=== PATIENT | female | born 1990 | race Caucasian/White ===

== ENCOUNTER 2017-02-20 15:57 | Emergency (ER) | payer OTHER ==
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
[2017-02-20 19:57] VITALS: BP 107/71; PULSE 73; RESP 18; TEMP 98.2; O2SAT 99
== END 2017-02-20 19:57 | disposition home or self-care (01) ==
DX: S16.1XXA Strain of muscle, fascia and tendon at neck level, initial encounter (principal); S09.90XA Unspecified injury of head, initial encounter; V89.2XXA Person injured in unspecified motor-vehicle accident, traffic, initial encounter; Y92.410 Unspecified street and highway as the place of occurrence of the external cause

== ENCOUNTER → 2017-10-29 | Outpatient (CLI) | payer OTHER | LOC: FIMAGING 15:38 | PROVIDERS: ATTEND Physician Assistant | DX: R51 Headache (principal); R42 Dizziness and giddiness; R53.83 Other fatigue ==

== ENCOUNTER 2018-06-15 15:50 | Emergency (ER) | payer OTHER ==
--- NOTE | 2018-06-15 16:29 | EDPHY ---
H & P Stated Complaint: c/o panic attack then vomiting, then syncope Time Seen by Provider: 06/15/18 16:23 HPI/ROS: HPI: This is a 28-year-old female who presents with Chief Complaint: c/o panic attack then vomiting, then syncope Location: Head Quality: Injury Duration: 45 min prior to arrival Signs and Symptoms: no shortness of breath at rest, no shortness of breath on exertion, no cough, no chest pain, no palpitations, no lower extremity edema, no wheezing, no orthopnea, no paroxysmal nocturnal dyspnea, no fever, no injury/ trauma, no hemoptysis, no carpal pedal spasms Timing: Acute Severity: Mild Context: Patient reports that she is under extreme stress for grad school as well as family stressors and approximately 1 and 0.5 hr prior to arrival started to have increased anxiety and panic attack. She reports that she was breathing rapidly, crying excessively and hunched over resting her elbows on her knees trying to catch her breath. She then moved to the bathroom and vomited several times. She remembers looking at the toilet and then waking up next to the bath tub. She had had positive loss consciousness. She reports that she feels nauseous and dizzy and has cervical midline pain at the base of her skull. She also complains of pain at the left temporal, parietal area. No active bleeding. She took an Uber here to the emergency room for further evaluation. Patient reports that this is typical for her to have increased anxiety and panic attacks since the summer. She is currently taking psychiatric medications. Patient has an appointment tomorrow with her therapist , Ms. Vigil. Modifying Factors: See above Comment: ROS: A comprehensive 10 system review of systems is otherwise negative aside from elements mentioned in the history of present illness. MEDICAL/SURGICAL/SOCIAL HISTORY: Medical history: Anxiety. Does not take any regular medications. Surgical history: Denies Social history: Member of [employer]. Never smoked. CONSTITUTIONAL: Slightly tearful, polite and cooperative, adult white female, awake and alert, no obvious distress HEENT: Atraumatic and normocephalic, PERRL, EOMI. no globe entrapment, no raccoon eyes. no [place] signs.Tympanic membranes clear. No tympanic membrane rupture. Nares patent; no septal hematoma. Oropharynx clear, no exudate and moist pink mucosa. No malocclusion. no dental trauma. Airway patent. No lymphadenopathy. NECK: supple, moderate C1 through C3 midline tenderness, flexion 45 degrees, extension 45 degrees, right and left lateral flexion 45 degrees. Cardiovascular: Normal S1/S2, regular rate, regular rhythm, without murmur rub or gallop. PULMONARY/CHEST: Symmetrical and nontender. Clear to auscultation bilaterally. Good air movement. No accessory muscle usage. ABDOMEN: Soft, nondistended, nontender, no rebound, no guarding, no peritoneal signs, no masses or organomegaly. No CVAT. EXTREMITIES: 2/2 pulses, strength 5/5, no deformities, no clubbing, no cyanosis or edema. NEUROLOGICAL: no focal neuro deficits. GCS 15. Cranial nerves 2-12 grossly intact. SKIN: Warm and dry, no erythema. no rash. Good capillary refill. PSYCH: Good eye contact, no flight of ideas, organized thought process, good insight and judgment, no auditory hallucinations, no visual hallucinations, no suicidal ideation with a plan, no homicidal ideation, no paranoia Source: Patient Exam Limitations: No limitations - Personal History LMP (Females 10-55): 1-7 Days Ago - Medical/Surgical History Hx Asthma: No Hx Chronic Respiratory Disease: No Hx Diabetes: No Hx Cardiac Disease: No Hx Renal Disease: No Hx Cirrhosis: No Hx Alcoholism: No Hx HIV/AIDS: No Hx Splenectomy or Spleen Trauma: No Other PMH: anxiety - Social History Smoking Status: Never smoked Constitutional: Initial Vital Signs Temperature (C) 36.6 C 06/15/18 15:57 Heart Rate 87 06/15/18 15:57 Respiratory Rate 18 06/15/18 15:57 Blood Pressure 124/100 H 06/15/18 15:57 O2 Sat (%) 100 06/15/18 15:57 O2 Delivery Mode Room Air Allergies/Adverse Reactions: pineapple Allergy (Mild, Verified 06/15/18 16:00) Hives Home Medications: Medication Instructions Recorded NK [No Known Home Meds] 02/20/17 Medical Decision Making - Diagnostics EKG Interpretation: 12 lead EKG: Indication: Syncope Rhythm: Normal sinus rhythm, rate of 67 beats per minute [place]: Normal Intervals: Normal QRS: Normal ST segments: Normal INTERPRETATION: No acute ischemic changes The 12 lead EKG was interpreted by myself and with attending. Imaging Results: Imaging Impressions Cervical Spine CT 06/15/18 16:29 Impression: 1. No definite fracture. 2. If there is persistent pain or neurological deficit, recommend MR cervical spine and consider flexion and extension views, if clinically indicated. Findings and recommendations discussed with Emergency Department physician, Neeta Ryan at 1716 hour, 06/15/2018. Final report concurs with initial preliminary interpretation. Head CT 06/15/18 16:29 Impression: 1. Normal CT brain without contrast. 2. No skull fracture. Findings and recommendations discussed with Emergency Department physician, Neeta Ryan at 1715 hour, 06/15/2018. Final report concurs with initial preliminary interpretation. ED Course/Re-evaluation: Vital signs reviewed and stable upon arrival. No respiratory distress, hypoxia. Panic attack resolved upon arrival to the emergency room. EKG my read shows normal sinus rhythm rate of 67 beats per minute, no acute ischemic changes, no arrhythmias. Based on nexus protocol of LOC/nausea and vomiting, head CT scan ordered Based on nexus protocol of midline tenderness, cervical CT scan ordered 1715: Called by Radiology, Dr. Martínez, head CT scan shows no acute intracranial process. Cervical CT scan shows no fracture, dislocation. Does show straightening of the lordosis consistent with muscle spasm. This is most likely related to a vasovagal reaction secondary to vomiting and panic attacks. Patient is drinking fluids without any difficulty. Complete resolution of symptoms. Patient has close follow-up with counselor tomorrow Does not meet [address] or [facility] criteria This patient was seen under the supervision of my secondary supervising physician. I evaluated care for this patient independently. Discussed this patient with Dr. Curiel who did not see the patient. Differential Diagnosis: Syncope including but not limited to vasovagal syncope, arrhythmia, dehydration , and blood loss. Departure - Departure Disposition: Home, Routine, Self-Care Clinical Impression: Panic attack as reaction to stress Contusion of scalp Qualifiers: Encounter type: initial encounter Qualified Code(s): S00.03XA - Contusion of scalp, initial encounter Cervical muscle strain Qualifiers: Encounter type: initial encounter Qualified Code(s): S16.1XXA - Strain of muscle, fascia and tendon at neck level, initial encounter Condition: Good Instructions: Cervical Strain (ED), Scalp Contusion in Adults (ED), Anxiety (ED ), Panic Attack (ED) Additional Instructions: Head CT scan is negative for bleed, fracture. Cervical CT scan is negative for fracture. It does show muscle spasm in your neck muscles. Take Tylenol 650 mg every 4 hours and/or Ibuprofen 600 mg every 8 hours with food as needed for pain. Apply ice for 30 minutes at a time; 2-3 times per day for the next 1-2 days. Keep follow-up appointment with counselor tomorrow. Call 911 if you have thoughts of hurting or killing yourself or anyone else, or have any new or worsening symptoms that concern you. Referrals: Yoli Lofton PA [Primary Care Provider] - As per Instructions
[2018-06-15 17:30] VITALS: BP 124/88
--- NOTE | 2018-06-15 19:55 | CPEKG ---
Test Reason : OPEN Blood Pressure : / mmHG Vent. Rate : 067 BPM Atrial Rate : 067 BPM P-R Int : 134 ms QRS Dur : 088 ms QT Int : 408 ms P-R-T Axes : 034 071 054 degrees QTc Int : 431 ms Sinus rhythm Confirmed by Ximena Curiel ([id number]) on 06/15/2018 7:55:12 PM Referred By: Confirmed By:Ximena Curiel
== END 2018-06-15 17:28 | disposition home or self-care (01) ==
LOC: EEVIPCON 15:50
DX: F43.0 Acute stress reaction (principal); R55 Syncope and collapse; S00.03XA Contusion of scalp, initial encounter; S16.1XXA Strain of muscle, fascia and tendon at neck level, initial encounter; W19.XXXA Unspecified fall, initial encounter; Y92.012 Bathroom of single-family (private) house as the place of occurrence of the external cause; F41.9 Anxiety disorder, unspecified

== ENCOUNTER 2018-08-05 00:28 | Emergency (ER) | payer OTHER ==
[2018-08-05] MEDS ORDERED: NS 1,000 ML IV ONE ×2 (00:38→00:40)
[2018-08-05] MEDS ORDERED: ONDANSETRON 4 MG/2 ML VIAL IVP ONE (00:38)
[2018-08-05] MEDS ORDERED: FAMOTIDINE 20 MG/2 ML SDV IVP ONE (00:39)
--- NOTE | 2018-08-05 00:39 | EDPHY ---
H & P Stated Complaint: "VOMITING BLOOD" Time Seen by Provider: 08/05/18 00:38 HPI/ROS: HPI CHIEF COMPLAINT: Nausea vomiting. HISTORY OF PRESENT ILLNESS: 28-year-old female otherwise healthy no significant medical history does not take any daily medications, presents emergency room with nausea vomiting. Patient states she flew back from [employer] to [place]. She went out this evening with her significant other and had 5 beers she did take it mg Ativan on the flight earlier tonight. She did not have anything to eat today. She arrives to the emergency room with vomiting. She states she vomited multiple times she thought initially there was dark chunks of blood in it. However she continued to vomit here in the emergency without any blood. Denies any significant abdominal pain. Does complain of nausea. Denies drug use. Denies chest pain or shortness of breath. Denies diarrhea. No recent illness. She does report that she had 5 beers 1 mg Ativan without eating anything tonight. Past Medical History: Denies significant medical history Past Surgical History: Lymph node removal Social History: Alcohol this evening. Family History: Noncontributory ROS REVIEW OF SYSTEMS: 10 Systems were reviewed and negative with the exception of the elements mentioned in the history of present illness. Exam Constitutional appears well nontoxic, triage nursing summary reviewed, vital signs reviewed, awake/alert. Actively vomiting. Stable vital signs Eyes normal conjunctivae and sclera, EOMI, PERRLA. HENT normal inspection, atraumatic, moist mucus membranes, no epistaxis, neck supple/ no meningismus, no raccoon eyes. Respiratory clear to auscultation bilaterally, normal breath sounds, no respiratory distress, no wheezing. Cardiovascular rate normal, regular rhythm, no murmur, no edema, distal pulses normal. Gastrointestinal soft, non-tender, no rebound, no guarding, normal bowel sounds, no distension, no pulsatile mass. Genitourinary no CVA tenderness. Musculoskeletal no midline vertebral tenderness, full range of motion, no calf swelling, no tenderness of extremities, no meningismus, good pulses, neurovascularly intact. Skin pink, warm, & dry, no rash, skin atraumatic. Neurologic awake, alert and oriented x 3, AAOx3, moves all 4 extremities equally, motor intact, sensory intact, CN II-XII intact, normal cerebellar, normal vision, normal speech. Psychiatric normal mood/affect. Heme/Lymph/Immune no lymphadenopathy. Differential Diagnosis: Differential diagnosis includes but is not limited to and in no particular order: Bowel obstruction, appendicitis, gallbladder disease, diverticulitis, colitis, enteritis, perforated viscus, gastritis, GERD , esophagitis, urinary tract infection, pyelonephritis, kidney stones Medical Decision Making: Plan for this patient IV establishment IV fluid bolus IV Zofran for nausea IV Pepcid for GI upset, basic blood work, alcohol level, drug screen, electrolytes, liver enzymes, lipase, test and re- evaluate. Re-evaluation: Serum alcohol level 180. 1:45 a.m.. 0509am; patient re-evaluated and continues to do very well. Denies any abdominal pain cup is not vomiting would like to go home. She received 2 L of fluid here IV Pepcid IV Zofran. Patient denies any chest pain or shortness of breath, Vital signs are stable. She p.o. Challenge well without vomiting Her serum alcohol level was elevated 180 I do believe her vomiting most likely was due to gastritis. Recommend bland diet over the next 24-48 hours Return emergency room if worsening abdominal pain, fever, vomiting she is comfortable this plan understands and would like to be discharged home. Source: Patient - Personal History LMP (Females 10-55): Over 28 Days Ago Current Tetanus Diphtheria and Acellular Pertussis (TDAP): Yes - Medical/Surgical History Hx Asthma: No Hx Chronic Respiratory Disease: No Hx Diabetes: No Hx Cardiac Disease: No Hx Renal Disease: No Hx Cirrhosis: No Hx Alcoholism: No Hx HIV/AIDS: No Hx Splenectomy or Spleen Trauma: No Other PMH: anxiety - Social History Smoking Status: Never smoked Constitutional: Initial Vital Signs Temperature (C) 36.3 C 08/05/18 00:33 Heart Rate 83 08/05/18 00:33 Respiratory Rate 16 08/05/18 00:33 Blood Pressure 116/82 H 08/05/18 00:33 O2 Sat (%) 98 08/05/18 00:33 O2 Delivery Mode Room Air Allergies/Adverse Reactions: pineapple Allergy (Mild, Verified 06/15/18 16:00) Hives Home Medications: Medication Instructions Recorded NK [No Known Home Meds] 02/20/17 Medical Decision Making - Data Points Laboratory Results: Laboratory Results 08/05/18 00:49 08/05/18 00:49 08/05/18 08/05/18 08/05/18 02:20 00:49 00:49 WBC RBC Hgb Hct MCV MCH MCHC RDW Plt Count MPV Neut % (Auto) Lymph % (Auto) [place] % (Auto) Eos % (Auto) Baso % (Auto) Nucleat RBC Rel Count Absolute Neuts (auto) Absolute Lymphs (auto) Absolute Monos (auto) Absolute Eos (auto) Absolute Basos (auto) Absolute Nucleated RBC Immature Gran % Immature Gran # Sodium 140 mEq/L mEq/L (135-145) Potassium 3.8 mEq/L mEq/L (3.5-5.2) Chloride 105 mEq/L mEq/L (97-110) Carbon Dioxide 22 mEq/l mEq/l (22-31) Anion Gap 13 mEq/L mEq/L (6-14) BUN 11 mg/dL mg/dL (7-23) Creatinine 0.6 mg/dL mg/dL (0.6-1.0) Estimated GFR > 60 Glucose 91 mg/dL mg/dL (70-100) Calcium 9.0 mg/dL mg/dL (8.5-10.4) Total Bilirubin 0.7 mg/dL mg/dL (0.1-1.4) Conjugated Bilirubin 0.3 mg/dL mg/dL (0.0-0.5) Unconjugated Bilirubin 0.4 mg/dL mg/dL (0.0-1.1) AST 24 IU/L IU/L (14-46) ALT 23 IU/L IU/L (9-52) Alkaline Phosphatase 61 IU/L IU/L (38-126) Total Protein 7.5 g/dL g/dL (6.3-8.2) Albumin 4.6 g/dL g/dL (3.5-5.0) Lipase 93 IU/L IU/L (23-300) Beta HCG, Qual NEGATIVE Urine Opiates Screen NEGATIVE (NEGATIVE) Urine Barbiturates NEGATIVE (NEGATIVE) Ur Phencyclidine Scrn NEGATIVE (NEGATIVE) Ur Amphetamine Screen NEGATIVE (NEGATIVE) U Benzodiazepines Scrn NEGATIVE (NEGATIVE) Urine Cocaine Screen NEGATIVE (NEGATIVE) U Marijuana (THC) Screen NEGATIVE (NEGATIVE) Ethyl Alcohol 180 mg/dL H mg/dL (0-10) 08/05/18 00:49 WBC 7.51 10^3/uL 10^3/uL (3.80-9.50) RBC 4.09 10^6/uL L 10^6/uL (4.18-5.33) Hgb 12.8 g/dL g/dL (12.6-16.3) Hct 37.5 % L % (38.0-47.0) MCV 91.7 fL fL (81.5-99.8) MCH 31.3 pg pg (27.9-34.1) MCHC 34.1 g/dL g/dL (32.4-36.7) RDW 12.8 % % (11.5-15.2) Plt Count 310 10^3/uL 10^3/uL (150-400) MPV 9.4 fL fL (8.7-11.7) Neut % (Auto) 46.7 % % (39.3-74.2) Lymph % (Auto) 45.0 % % (15.0-45.0) [place] % (Auto) 6.0 % % (4.5-13.0) Eos % (Auto) 1.5 % % (0.6-7.6) Baso % (Auto) 0.7 % % (0.3-1.7) Nucleat RBC Rel Count 0.0 % % (0.0-0.2) Absolute Neuts (auto) 3.51 10^3/uL 10^3/uL (1.70-6.50) Absolute Lymphs (auto) 3.38 10^3/uL H 10^3/uL (1.00-3.00) Absolute Monos (auto) 0.45 10^3/uL 10^3/uL (0.30-0.80) Absolute Eos (auto) 0.11 10^3/uL 10^3/uL (0.03-0.40) Absolute Basos (auto) 0.05 10^3/uL 10^3/uL (0.02-0.10) Absolute Nucleated RBC 0.00 10^3/uL 10^3/uL (0-0.01) Immature Gran % 0.1 % % (0.0-1.1) Immature Gran # 0.01 10^3/uL 10^3/uL (0.00-0.10) Sodium Potassium Chloride Carbon Dioxide Anion Gap BUN Creatinine Estimated GFR Glucose Calcium Total Bilirubin Conjugated Bilirubin Unconjugated Bilirubin AST ALT Alkaline Phosphatase Total Protein Albumin Lipase Beta HCG, Qual Urine Opiates Screen Urine Barbiturates Ur Phencyclidine Scrn Ur Amphetamine Screen U Benzodiazepines Scrn Urine Cocaine Screen U Marijuana (THC) Screen Ethyl Alcohol Medications Given: Discontinued Medications Famotidine (Pepcid) 20 mg IVP EDNOW ONE Stop: 08/05/18 00:40 Last Admin: 08/05/18 00:50 Dose: 20 mg Sodium Chloride (Ns) 1,000 mls @ 0 mls/hr IV EDNOW ONE; Wide Open PRN Reason: Protocol Stop: 08/05/18 00:39 Last Admin: 08/05/18 00:49 Dose: 1,000 mls Sodium Chloride (Ns) 1,000 mls @ 0 mls/hr IV ONCE ONE PRN Reason: Wide Open Stop: 08/05/18 00:41 Last Admin: 08/05/18 00:50 Dose: 1,000 mls Ondansetron HCl (Zofran) 4 mg IVP EDNOW ONE Stop: 08/05/18 00:39 Last Admin: 08/05/18 00:50 Dose: 4 mg Promethazine HCl (Phenergan) 6.25 mg IVP ONCE ONE Stop: 08/05/18 01:02 Last Admin: 08/05/18 01:03 Dose: 6.25 mg Departure - Departure Disposition: Home, Routine, Self-Care Clinical Impression: Vomiting Qualifiers: Vomiting type: unspecified Vomiting Intractability: non-intractable Nausea presence: with nausea Qualified Code(s): R11.2 - Nausea with vomiting, unspecified Condition: Good Instructions: Acute Nausea and Vomiting (ED) Additional Instructions: 1. [place] diet over the next 24-48 hours no spicy fatty greasy foods. 2. Return emergency room if worsening abdominal pain, fever, vomiting not doing well Referrals: Yoli Lofton PA [Primary Care Provider] - As per Instructions
[2018-08-05] MEDS ORDERED: PROMETHAZINE HCL 25 MG/ML INJ IVP ONE (01:01)
[2018-08-05] MEDS ORDERED: PROMETHAZINE HCL 25 MG/ML INJ ONE (01:02)
[2018-08-05 01:10] LABS: PLATELET COUNT 310 10^3/uL (150-400)
[2018-08-05 05:14] VITALS: BP 98/61
== END 2018-08-05 05:25 | disposition home or self-care (01) ==
DX: R11.2 Nausea with vomiting, unspecified (principal); E86.9 Volume depletion, unspecified
CPT/HCPCS: 80305; 96374; G0480; J2405; J2550

== ENCOUNTER → 2018-09-21 | Outpatient (CLI) | payer OTHER | LOC: FIMAGING 10:29 | PROVIDERS: ATTEND Physician Assistant | DX: R14.0 Abdominal distension (gaseous) (principal) ==